=== PATIENT | female | born 1990 | race Caucasian/White ===

== ENCOUNTER 2017-04-05 14:18 | Emergency (ER) | payer BC, OTHER ==
--- NOTE | 2017-04-05 15:35 | ED ---
General Adult HPI - General Chief complaint: Recheck/Abnormal Lab/Rx Stated complaint: Cyst on breast Time Seen by Provider: 04/05/17 14:43 Source: patient, RN notes reviewed Mode of arrival: ambulatory Limitations: no limitations - History of Present Illness Initial comments: 26-year-old female presents emergency Department chief complaint left breast abscess. Patient states that has been on for last few weeks seen by Dr. Garcia her surgeon who placed her on antibiotics at that time. She states that she finished a course antibiotics Bactrim twice daily for 10 days and states that symptoms have worsened. Patient states she's had it several times in the past states that he has open this up. Patient denies any fever or chills. She states it is uncomfortable. Patient denies any shortness of breath , neck pain, neck swelling. Patient states there is no drainage or any retraction of her nipple at this time. Patient denies nausea vomiting diarrhea constipation. - Related Data Previous Rx's Medication Instructions Recorded Clindamycin [Cleocin] 450 mg PO Q6H 5 Days 05/09/15 traMADol HCl [Ultram] 50 mg PO Q8H PRN #9 tab 05/09/15 Clindamycin HCl 300 mg PO Q6HR #40 cap 04/05/17 Hydrocodone/Acetaminophen [[place] 1 tab PO Q6HR PRN #15 tab 04/05/17 5-325] Allergies Allergy/AdvReac Type Severity Reaction Status Date / Time STERI STRIPS Allergy Rash/Hives Uncoded 05/09/15 11:37 Review of Systems ROS Statement: Those systems with pertinent positive or pertinent negative responses have been documented in the HPI. ROS Other: All systems not noted in ROS Statement are negative. Past Medical History Past Medical History: Asthma History of Any Multi-Drug Resistant Organisms: None Reported Past Surgical History: Tubal Ligation Past Anesthesia/Blood Transfusion Reactions: No Reported Reaction Additional Past Anesthesia/Blood Transfusion Reaction / Comment(s): HAS NEVER HAD ANESTHESIA. Past Psychological History: Anxiety Smoking Status: Current every day smoker Past Alcohol Use History: Occasional Past Drug Use History: None Reported General Exam Limitations: no limitations General appearance: alert, in no apparent distress Respiratory exam: Present: normal lung sounds bilaterally. Absent: respiratory distress, wheezes, rales, rhonchi, stridor Cardiovascular Exam: Present: regular rate, normal rhythm, normal heart sounds. Absent: systolic murmur, diastolic murmur, rubs, gallop, clicks GI/Abdominal exam: Present: soft, normal bowel sounds. Absent: distended, tenderness, guarding, rebound, rigid Skin exam: Present: other (Left breast there is erythema extends from the 7 o' clock position to the 12 o'clock position with moderate tenderness and some swelling noted area is firm with palpation. exam performed with STEPHANIA Harper) Course Vital Signs 04/05/17 14:38 Temperature 98.7 F Pulse Rate 83 Respiratory 16 Rate Blood Pressure 109/74 O2 Sat by Pulse 100 Oximetry Medical Decision Making - Medical Decision Making 26-year-old female present for breast abscess. Patient ultrasound does show an abscess. Patient will be follow-up with her surgeon Dr. Garcia. Patient we placed on clindamycin as she failed Bactrim. She is advised if she develops fever or worsening symptoms she needs to come back to emergency department. Disposition Clinical Impression: Breast abscess Disposition: HOME SELF-CARE Condition: Stable Instructions: Abscess (ED) Additional Instructions: Please return to the Emergency Department if symptoms worsen or any other concerns. Prescriptions: Clindamycin HCl 300 mg PO Q6HR #40 cap Hydrocodone/Acetaminophen [[place] 5-325] 1 tab PO Q6HR PRN #15 tab PRN Reason: Pain Referrals: Stanley Hines MD [Primary Care Provider] - 1-2 days Josemanuel Garcia MD [STAFF PHYSICIAN] - 1-2 days Time of Disposition: 16:10
[2017-04-05 17:08] VITALS: BP 117/65; PULSE 72; RESP 18; TEMP 98.1
--- NOTE | 2017-04-06 07:47 | USB ---
Reason for exam: clinical finding. US Breast Limited LT Technologist: Jolly Field Left breast ultrasound demonstrates a 2.5 x 1.6 x 2.7cm oval, mixed lesion at 11 o'clock. Possible infected collection. These results were verbally communicated with the patient and result sheet given to the patient on 04/05/17. ASSESSMENT: Probably benign, BI-RAD 3 RECOMMENDATION: Ultrasound of the left breast in 3 months.
== END 2017-04-05 17:00 | disposition home or self-care (01) ==
LOC: EC 14:18
DX: N61.1 Abscess of the breast and nipple (principal); F17.200 Nicotine dependence, unspecified, uncomplicated; Z91.09 Other allergy status, other than to drugs and biological substances
CPT/HCPCS: 10060; 87070; 87205; 99283

== ENCOUNTER 2019-05-11 07:07 | Emergency (ER) | payer BC, OTHER ==
[2019-05-11 07:11] VITALS: BP 110/80; PULSE 82; RESP 18; TEMP 97.9
--- NOTE | 2019-05-11 07:19 | ED ---
ENT HPI - General Chief complaint: ENT Stated complaint: Sore throat/bleeding Time Seen by Provider: 05/11/19 07:15 Source: patient Mode of arrival: ambulatory Limitations: no limitations - History of Present Illness Initial comments: 28yo female presented for chief complaint sore throat times one day. Patient states she has had a sore throat for the past day. She states she looks the mirror and noted with spots on her tonsils. Patient is a difficulty breathing or swallowing. Patient states she has felt hot and cold does not require temperature at home. Patient states she has a couple lymph nodes are enlarged. Patient denies any vomiting diarrhea. Abdominal pain patient states that her right ear is tender. Patient denies hearing loss. Remaining review of system negative. Upon arrival patient appears well besides acute distress patient denies - Related Data Previous Rx's Medication Instructions Recorded Clindamycin [Cleocin] 450 mg PO Q6H 5 Days capsule 05/09/15 traMADol HCl [Ultram] 50 mg PO Q8H PRN #9 tab 05/09/15 Clindamycin HCl 300 mg PO Q6HR #40 cap 04/05/17 Hydrocodone/Acetaminophen [[place] 1 tab PO Q6HR PRN #15 tab 04/05/17 5-325] Amoxicillin 500 mg PO Q12HR 10 Days #20 cap 05/11/19 Allergies Allergy/AdvReac Type Severity Reaction Status Date / Time STERI STRIPS Allergy Rash/Hives Uncoded 05/09/15 11:37 Review of Systems ROS Statement: Those systems with pertinent positive or pertinent negative responses have been documented in the HPI. ROS Other: All systems not noted in ROS Statement are negative. Past Medical History Past Medical History: Asthma History of Any Multi-Drug Resistant Organisms: None Reported Past Surgical History: Tubal Ligation Past Anesthesia/Blood Transfusion Reactions: No Reported Reaction Additional Past Anesthesia/Blood Transfusion Reaction / Comment(s): HAS NEVER HAD ANESTHESIA. Past Psychological History: Anxiety Smoking Status: Current every day smoker Past Alcohol Use History: Occasional Past Drug Use History: None Reported General Exam - General Exam Comments Initial Comments: General: The patient is awake and alert, in no distress, and does not appear acutely ill. Eye: +3 mm pupils are equal, round and reactive to light, extra-ocular movements are intact. No nystagmus. There is normal conjunctiva bilaterally. No signs of icterus. No photophobia Ears, nose, mouth and throat: There are moist mucous membranes and no oral lesions. Oropharynx werythematous there is tonsillar enlargement with white exudates, no peritonsillar lesions. Uvula midline. Tympanic membranes are not erythematous or is no effusions bulging or retraction. No tenderness to palpation of the mastoid. Appreciated anterior cervical lymphadenopathy. No tripoding, no drooling. Neck: The neck is supple, there is no tenderness or JVD. No nuchal rigidity Cardiovascular: There is a regular rate and rhythm. No murmur, rub or gallop is appreciated. Respiratory: Lungs are clear to auscultation, respirations are non-labored, breath sounds are equal. No wheezes, stridor, rales, or rhonchi. No retractions or abdominal breathing. Musculoskeletal: Normal ROM, no tenderness. Strength 5/5. Sensation intact. Radial pulses equal bilaterally 2+. Neurological: A&O x 3. CN II-XII intact grossly, There are no obvious motor or sensory deficits. Coordination appears grossly intact. Speech appears normal, no muffling. Skin: Skin is warm and dry and no rashes or lesions are noted. No extremity edema Psychiatric: Cooperative Limitations: no limitations Course Vital Signs 05/11/19 07:08 Temperature 97.9 F Pulse Rate 82 Respiratory 18 Rate Blood Pressure 110/80 O2 Sat by Pulse 100 Oximetry Medical Decision Making - Medical Decision Making Pleasant, well appearing 28yo female presented for sore throat. Patient's physical examination concerning for strep pharyngitis. Patient denies cough has tonsillar exudates anterior cervical adenopathy and possible history or fever. Patient does not appear toxic. No evidence of respiratory distress. No evidence of peritonsillar lesions. Uvula is midline. At this helped to patient with amoxicillin. She is to follow-up with her primary care provider. Return parameters were discussed including return if develops rash from amoxicillin. Patient provided work note and discharged appearing well, agreeable with care plan. Disposition Clinical Impression: Pharyngitis, Tonsillar exudate Disposition: HOME SELF-CARE Condition: Good Instructions (If sedation given, give patient instructions): Strep Throat (ED), Tonsillitis (ED) Additional Instructions: Please use medication as discussed. Please follow-up with family doctor in the next 2 days. If you develop rash from antibiotic please return to the ER. Please return to emergency room if the symptoms increase or worsen or for any other concerns. Prescriptions: Amoxicillin 500 mg PO Q12HR 10 Days #20 cap Is patient prescribed a controlled substance at d/c from ED?: No Referrals: Stanley Hines MD [Primary Care Provider] - 1-2 days Time of Disposition: 07:19
== END 2019-05-11 07:31 | disposition home or self-care (01) ==
LOC: EC 07:07
DX: J03.90 Acute tonsillitis, unspecified (principal); F17.200 Nicotine dependence, unspecified, uncomplicated; R59.0 Localized enlarged lymph nodes; Z91.048 Other nonmedicinal substance allergy status
CPT/HCPCS: 99282

== ENCOUNTER 2020-09-17 18:26 | Emergency (ER) | payer OTHER ==
[2020-09-17] MEDS ORDERED: LIDOCAINE 1% INJ 10MG/ML (20 ML MDV) SQ ONE (19:14)
[2020-09-17 19:34] VITALS: RESP 19
--- NOTE | 2020-09-17 19:54 | ED ---
Skin/Abscess/FB HPI - General Chief complaint: Skin/Abscess/Foreign Body Stated complaint: lump on breast Time Seen by Provider: 09/17/20 18:48 Source: patient Mode of arrival: ambulatory Limitations: no limitations - History of Present Illness Initial comments: Patient is a 29-year-old female presenting to the emergency Department with complaints of an abscess on her left breast. Patient states barrett symptoms developed about 4 days ago and has been increasing in size and painfulness. Patient states she has had a similar issue in the past on the same breast. She denies any fever, chills. She states the pain has been increasing, she has been trying to do warm compresses multiple times over the past few days and it does not seem to be opening to drain. She denies any other complaints at this time. Upon arrival to the ER her vitals are stable. - Related Data Previous Rx's Medication Instructions Recorded Clindamycin [Cleocin] 450 mg PO Q6H 5 Days capsule 05/09/15 traMADol HCl [Ultram] 50 mg PO Q8H PRN #9 tab 05/09/15 Clindamycin HCl 300 mg PO Q6HR #40 cap 04/05/17 Hydrocodone/Acetaminophen [[place] 1 tab PO Q6HR PRN #15 tab 04/05/17 5-325] Amoxicillin 500 mg PO Q12HR 10 Days #20 cap 05/11/19 Cephalexin [Keflex] 500 mg PO Q6HR 5 Days #20 cap 09/17/20 Allergies Allergy/AdvReac Type Severity Reaction Status Date / Time STERI STRIPS Allergy Rash/Hives Uncoded 09/17/20 18:30 Review of Systems ROS Statement: Those systems with pertinent positive or pertinent negative responses have been documented in the HPI. ROS Other: All systems not noted in ROS Statement are negative. Past Medical History Past Medical History: Asthma Additional Past Medical History / Comment(s): left breast cyst History of Any Multi-Drug Resistant Organisms: None Reported Past Surgical History: Tubal Ligation Additional Past Surgical History / Comment(s): I/D Left breast cyst Past Anesthesia/Blood Transfusion Reactions: No Reported Reaction Additional Past Anesthesia/Blood Transfusion Reaction / Comment(s): HAS NEVER HAD ANESTHESIA. Past Psychological History: Anxiety Smoking Status: Current every day smoker Past Alcohol Use History: Occasional Past Drug Use History: None Reported General Exam - General Exam Comments Initial Comments: GENERAL: Patient is well-developed and well-nourished. Patient is nontoxic and in no acute distress. HEAD: Atraumatic, normocephalic. EYES: Pupils equal round and reactive to light, extraocular movements intact, sclera anicteric, conjunctiva are normal. Eyelids were unremarkable. ENT: TMs normal, nares patent, oropharynx clear without exudates. Moist mucous membranes. NECK: Normal range of motion, supple without lymphadenopathy or JVD. LUNGS: Unlabored respirations. Breath sounds clear to auscultation bilaterally and equal. No wheezes rales or rhonchi. HEART: Regular rate and rhythm without murmurs, rubs or gallops. ABDOMEN: Soft, nontender, normoactive bowel sounds. No guarding, no rebound. No masses appreciated. : Deferred MUSCULOSKELETAL: Normal extremities with adequate strength and normal range of motion, no pitting or edema. No clubbing or cyanosis. NEUROLOGICAL: Patient is alert and oriented x 3. Motor and sensory are also intact. Cranial nerves II through XII grossly intact. Symmetrical smile. Normal speech, normal gait. PSYCH: Normal mood, normal affect. SKIN: Warm, Dry, normal turgor. Patient has a 2 cm in diameter area of redness, pain, fluctuance on the left breast, just medial to the left nipple. This does appear to be an abscess. It does appear to be superficial. 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: Identity, Site, Procedure, Consent Site: left breast Site Marked: Yes Site Verified With Patient/Guardian: Yes Final Confirmation: Procedure, Site, Confirmed w/Provider - Incision & Drainage Consent Obtained: verbal consent, written consent Indication: Abscess Site: chest (Left breast, just medial to left nipple) Size (cm): 2 Anesthetic Used: lidocaine 1% Amount (mLs): 2 I&D Cleaning Method: Alcohol Wipe Scalpel Used: #11 Needle Aspiration Performed?: No I&D Drainage Obtained: Pus, Blood Culture Obtained?: Yes Patient Tolerated Procedure: well Medical Decision Making - Medical Decision Making Patient is a 29-year-old female presenting with a 2 cm superficial abscess to the left breast 4 days. No fevers, her vitals are stable here. Consent was obtained for I&D. I&D was performed on the left breast, revealing a large amount of pus. Patient did have some relief of the pressure and pain. Patient tolerated procedure very well. I will give patient a short course of antibiotics, she will continue with warm compresses. Patient is stable for discharge. She can follow-up with her regular doctor. Return parameters were discussed with the patient and she verbalized understanding. Case discussed with Dr. Yañez. Disposition Clinical Impression: Abscess of left breast Disposition: HOME SELF-CARE Condition: Stable Instructions (If sedation given, give patient instructions): Abscess Incision and Drainage (ED) Additional Instructions: Please return to the Emergency Department if symptoms worsen or any other concerns. Continue with warm compresses throughout the day. May take ibuprofen or Tylenol for any discomfort. Take antibiotics as prescribed. If symptoms persist follow-up with your regular doctor. Prescriptions: Cephalexin [Keflex] 500 mg PO Q6HR 5 Days #20 cap Is patient prescribed a controlled substance at d/c from ED?: No Referrals: Stanley Hines MD [Primary Care Provider] - 1-2 days
[2020-09-17 20:03] VITALS: BP 127/84; PULSE 87; TEMP 98.4
== END 2020-09-17 20:02 | disposition home or self-care (01) ==
LOC: EC 18:26
DX: N61.1 Abscess of the breast and nipple (principal); F17.200 Nicotine dependence, unspecified, uncomplicated; Z88.8 Allergy status to other drugs, medicaments and biological substances
CPT/HCPCS: 99283; 10060; 87070; 87205; J2001

== ENCOUNTER 2022-02-11 19:22 | Emergency (ER) | payer OTHER ==
[2022-02-11] MEDS ORDERED: LIDOCAINE 1% INJ 10MG/ML (5 ML VIAL-PF) SQ ONE (20:54)
[2022-02-11] MEDS ORDERED: SULFAMETHOX-TMP 800-160MG 1 EACH TAB PO STA (20:56)
[2022-02-11] MEDS ORDERED: BUPIVACAINE (PF) 0.5% 30 ML VIAL SQ STA (21:02)
--- NOTE | 2022-02-11 21:39 | ED ---
Skin/Abscess/FB HPI - General Chief complaint: Skin/Abscess/Foreign Body Stated complaint: Abscess L Breast Time Seen by Provider: 02/11/22 20:48 Source: patient Mode of arrival: ambulatory Limitations: no limitations - History of Present Illness Initial comments: Patient presents with an abscess to her left breast just medial to the nipple. Patient states that this is a recurrent abscess she has had several times involving the left breast. Patient has been seen by Dr. Mike Prince and by Dr. Garcia. Patient states the area is sore, causing pain, getting larger over the last several days. She denies any fever or chills. No skin rashes or lesions. Patient has no history of MRSA. No headache, no fever or chills, no changes in vision or hearing, no sore throat or difficulty with speech, no neck pain, no chest pain or shortness of breath, no abdominal pain, no nausea or vomiting, no changes in urination or bowel movements, no numbness or tingling, no extremity pain, MD complaint: abscess/boil - Related Data Previous Rx's Medication Instructions Recorded Clindamycin [Cleocin] 450 mg PO Q6H 5 Days capsule 05/09/15 traMADol HCl [Ultram] 50 mg PO Q8H PRN #9 tab 05/09/15 Clindamycin HCl 300 mg PO Q6HR #40 cap 04/05/17 Hydrocodone/Acetaminophen [[place] 1 tab PO Q6HR PRN #15 tab 04/05/17 5-325] Amoxicillin 500 mg PO Q12HR 10 Days #20 cap 05/11/19 Cephalexin [Keflex] 500 mg PO Q6HR 5 Days #20 cap 09/17/20 Acetaminophen [Tylenol] 500 mg PO Q4-6H PRN #24 tab 02/11/22 Ibuprofen [Motrin] 600 mg PO Q8HR PRN #30 tab 02/11/22 Sulfamethox-Tmp 800-160Mg [Bactrim 1 tab PO Q12HR #20 tab 02/11/22 DS 800-160 mg] Allergies Allergy/AdvReac Type Severity Reaction Status Date / Time STERI STRIPS Allergy Rash/Hives Uncoded 02/11/22 20:46 Review of Systems ROS Statement: Those systems with pertinent positive or pertinent negative responses have been documented in the HPI. ROS Other: All systems not noted in ROS Statement are negative. Past Medical History Past Medical History: Asthma Additional Past Medical History / Comment(s): left breast cyst History of Any Multi-Drug Resistant Organisms: None Reported Past Surgical History: Tubal Ligation Additional Past Surgical History / Comment(s): I/D Left breast cyst Past Anesthesia/Blood Transfusion Reactions: No Reported Reaction Additional Past Anesthesia/Blood Transfusion Reaction / Comment(s): HAS NEVER HAD ANESTHESIA. Past Psychological History: Anxiety Smoking Status: Current every day smoker Past Alcohol Use History: Occasional Past Drug Use History: None Reported General Exam Limitations: no limitations General appearance: alert, in no apparent distress Head exam: Present: atraumatic, normocephalic, normal inspection Eye exam: Present: normal appearance, PERRL, EOMI. Absent: scleral icterus, conjunctival injection, periorbital swelling ENT exam: Present: normal exam, mucous membranes moist, normal external ear exam Neck exam: Present: normal inspection. Absent: tenderness, meningismus, lymphadenopathy Respiratory exam: Present: normal lung sounds bilaterally, chest wall tenderness (Patient has a indurated area to the left breast just medial to the left nipple. There is no fluctuance. No significant erythema. No vesicles. No pustules. Abscess is approximately 3 cm in diameter in its greatest dimension.). Absent: respiratory distress, wheezes, rales, rhonchi, stridor, accessory muscle use Cardiovascular Exam: Present: regular rate, normal rhythm, normal heart sounds. Absent: systolic murmur, diastolic murmur, rubs, gallop, clicks GI/Abdominal exam: Present: soft, normal bowel sounds. Absent: distended, tenderness, guarding, rebound, rigid Extremities exam: Present: normal inspection, full ROM, normal capillary refill. Absent: tenderness, pedal edema, joint swelling, calf tenderness Back exam: Present: normal inspection Neurological exam: Present: alert, oriented X3, CN II-XII intact Psychiatric exam: Present: normal affect, normal mood Skin exam: Present: warm, dry, intact, normal color. Absent: rash Course Vital Signs 02/11/22 20:43 Temperature 98.6 F Pulse Rate 80 Respiratory 20 Rate Blood Pressure 104/70 O2 Sat by Pulse 100 Oximetry Procedures - Incision & Drainage Consent Obtained: verbal consent Indication: Left breast abscess Site: other (Left breast) Size (cm): 3 Anesthetic Used: benzocaine 0.25%, lidocaine 1% I&D Cleaning Method: Betadine Sterile Field Used?: Yes Scalpel Used: #11 Needle Aspiration Performed?: No Irrigation Performed?: Yes I&D Drainage Obtained: Pus, Blood Packing: Iodoform Culture Obtained?: Yes Patient Tolerated Procedure: well, no complications Medical Decision Making - Medical Decision Making She presented with a small left breast abscess with some inflammation to the area. Minimal erythema overlying the abscess only. No significant surrounding cellulitis. No evidence of systemic illness. Antibiotics, warm compresses and follow-up with the surgeon. However patient is requesting incision and drainage stating that she does not believe she'll be able to get into surgeon any time soon. We discussed pressors cons of this. Patient electing that procedure done. All risks discussed. Patient concurs with treatment plan. Patient placed on Bactrim DS twice daily. Discussed wound care. Discussed care of iodoform packing material. Advised follow-up with the general surgeon without fail. Patient was told to return to the ER for any signs or symptoms worsen. Told to return immediately if any other problems arise. All questions answered. Treatment plan discussed. Patient in agreement Every effort has been made to ensure accuracy of this dictation. However, due to the limitations of electronic medical records and dictation devices, errors in charting still occur. Psychiatric Assistant Dr. Prince Disposition Clinical Impression: Abscess of left breast Disposition: HOME SELF-CARE Instructions (If sedation given, give patient instructions): Abscess Incision and Drainage (ED) Additional Instructions: Follow-up with your regular physician as directed. Return to the ER immediately if any symptoms worsen, new symptoms arise, or any other problems develop.Take the antibiotic as directed. Leave the packing material in place for 3 days then remove as instructed. Call tomorrow morning to make a follow-up appointment with the general surgeon. Prescriptions: Sulfamethox-Tmp 800-160Mg [Bactrim DS 800-160 mg] 1 tab PO Q12HR #20 tab Ibuprofen [Motrin] 600 mg PO Q8HR PRN #30 tab PRN Reason: Pain Acetaminophen [Tylenol] 500 mg PO Q4-6H PRN #24 tab PRN Reason: Pain Is patient prescribed a controlled substance at d/c from ED?: No If prescribed controlled substance>3 days was MAPS reviewed?: No Referrals: Minoo Palm MD [STAFF PHYSICIAN] - 02/13/22 Time of Disposition: 21:38
[2022-02-11 22:37] VITALS: BP 110/70; PULSE 78; RESP 18; TEMP 98.3
== END 2022-02-11 22:15 | disposition home or self-care (01) ==
LOC: EC 19:22
DX: N61.1 Abscess of the breast and nipple (principal); J45.909 Unspecified asthma, uncomplicated; F17.200 Nicotine dependence, unspecified, uncomplicated; Z88.3 Allergy status to other anti-infective agents
CPT/HCPCS: 87070; 87205; 10060; 99282; 96372; J2001